=== PATIENT | male | born 2000 | race Caucasian/White ===

== ENCOUNTER 2023-09-10 05:16 | Emergency (ER) | payer BC, SELFPAY ==
[2023-09-10 05:18] VITALS: BP 141/87; PULSE 114; RESP 20; TEMP 35.9; O2SAT 97
[2023-09-10 05:36] LABS: Appearance Urine Clear (Clear); Bilirubin Urine Negative (Negative); Blood Urine Negative (Negative); Color Urine Yellow (Yellow); Glucose Urine UA Negative (Negative); Ketones Urine Negative (Negative); Leukocyte Esterase Ur Negative LEU/UL (Negative); Nitrate Urine Negative (Negative); Protein Urine Negative (Negative); Specific Grav Ur 1.013 (1.001-1.035); Urobilinogen Urine 0.2 mg/dL (<2.0)
--- NOTE | 2023-09-10 05:36 | ED.GENADULT ---
HPI - General Adult General Chief complaint: Nausea/Vomiting/Diarrhea <Hardy Falcon MD - Last Filed: 09/10/23 07:00> Stated complaint: n/vx 8 days <Hardy Falcon MD - Last Filed: 09/10/23 07:00> Time Seen by Provider: 09/10/23 05:32 <Hardy Falcon MD - Last Filed: 09/10/23 07:00> History of Present Illness HPI narrative: This is a 22-year-old male presenting with nausea/vomiting for the last week. vomiting has been getting steadily worse. No fever chills chest pain difficulty breathing or abdominal pain. Patient is a daily marijuana user was not used for several days. patient states he has heard of cannabinoid hyperemesis. Patient is skeptical that marijuana is causing his symptoms. <Hardy Falcon MD - Last Filed: 09/10/23 07:00> Related Data Allergies/adverse reactions: Allergies Allergy/AdvReac Type Severity Reaction Status Date / Time No Known Allergies Allergy Verified 09/10/23 05:21 <Hardy Falcon MD - Last Filed: 09/10/23 07:00> Review of Systems Review of Systems: All systems reviewed & are unremarkable except as noted in HPI and below <Ryan Fowler MD - Last Filed: 09/10/23 17:41> Course Reevaluation(s) Reevaluation #1: Patient care was signed out to me by the overnight physician with disposition pending resolution of the patient's nausea and vomiting. Patient does feel improved the latest round of Benadryl and Compazine. Patient did tolerate p.o.. Patient's potassium was repleted with oral potassium and patient even kept this down. <Ryan Fowler MD - Last Filed: 09/10/23 17:41> Vital Signs Vital signs: Vital Signs Temperature 96.7 F L 09/10/23 05:18 Pulse Rate 114 H 09/10/23 05:18 Respiratory Rate 20 09/10/23 05:18 Blood Pressure 141/87 H 09/10/23 05:18 Pulse Oximetry 97 09/10/23 05:18 Oxygen Delivery Room Air 09/10/23 05:18 Temperature 97.9 F 09/10/23 08:03 Pulse Rate 99 09/10/23 08:03 Respiratory Rate 18 09/10/23 08:03 Blood Pressure 132/80 09/10/23 08:03 Pulse Oximetry 100 09/10/23 08:03 Oxygen Delivery Room Air 09/10/23 05:18 <Hardy Falcon MD - Last Filed: 09/10/23 07:00> Vital Signs Temperature 96.7 F L 09/10/23 05:18 Pulse Rate 114 H 09/10/23 05:18 Respiratory Rate 20 09/10/23 05:18 Blood Pressure 141/87 H 09/10/23 05:18 Pulse Oximetry 97 09/10/23 05:18 Oxygen Delivery Room Air 09/10/23 05:18 Temperature 97.9 F 09/10/23 08:03 Pulse Rate 99 09/10/23 08:03 Respiratory Rate 18 09/10/23 08:03 Blood Pressure 132/80 09/10/23 08:03 Pulse Oximetry 100 09/10/23 08:03 Oxygen Delivery Room Air 09/10/23 05:18 <Ryan Fowler MD - Last Filed: 09/10/23 17:41> Medical Decision Making MDM Narrative Medical decision making narrative: -Course: 22-year-old male presenting with cyclic vomiting. Given antiemetics. Signed out to the oncoming physician pending response to treatment. -DDX includes but is not limited to: Cyclic vomiting, viral syndrome -Co-morbidities complicating care: daily marijuana user, anxiety -Social determinants of health: works in [employer] -Independent interpretation of studies: -Interventions: 2 L normal saline, 5 mg IM Haldol, 4 mg Zofran, 20 mg Pepcid, 10mg compazine 25mg benadryl -Shared decision making / Disposition: signed out Pending response to treatment -RX: Zofran <Hardy Falcon MD - Last Filed: 09/10/23 07:00> Vital Signs Vital Signs: Vital Signs Temperature 96.7 F L 09/10/23 05:18 Pulse Rate 114 H 09/10/23 05:18 Respiratory Rate 20 09/10/23 05:18 Blood Pressure 141/87 H 09/10/23 05:18 Pulse Oximetry 97 09/10/23 05:18 Oxygen Delivery Room Air 09/10/23 05:18 Temperature 97.9 F 09/10/23 08:03 Pulse Rate 99 09/10/23 08:03 Respiratory Rate 18 09/10/23 08:03 Blood Pressure 132/80 09/10/23 08:03 Pulse Oximetry 100 09/10/23 08:03 Oxygen Delivery Room A
[2023-09-10 05:37] LABS: Basophils Absolute Auto 0.1 K/mm3 (0.0-0.1); Basophils Percent Auto 0.9 % (0.2-1.2); Eosinophils Absolute Auto 0.3 K/mm3 (0-0.3); Eosinophils Percent Auto 3.2 % (0-4.4); Hematocrit 44.6 % (42.0-52.0); Immature Granulocyte Absolute 0.01 K/mm3 (0.00-0.031); Immature Granulocyte Percent A 0.1 % (0-0.5); Lymphocytes Absolute Auto 2.64 K/mm3 (0.9-3.2); Lymphocytes Percent Auto 30.4 % (18.3-44.2); Mean Corpuscular HGB Conc 35.9 g/dl (32-36); Mean Corpuscular Hemoglobin 29.3 pg (26-34); Mean Corpuscular Volume 81.5 fl (80-100); Mean Platelet Volume 9.3 fl (7.4-10.4); Monocytes Percent Auto 11.3 % (2.6-8.5); Neutrophils Absolute Auto 4.7 K/mm3 (1.3-6.7); Neutrophils Percent Auto 54.1 % (45.5-73.1); Platelet Count Result 250 k/mm3 (150-375); Red Blood Count 5.47 M/mm3 (4.6-6.20); Red Cell Distribution Width 11.7 % (11.5-14.5); White Blood Count 8.7 K/mm3 (4.5-10.0)
[2023-09-10] MEDS: FAMOTIDINE 20 MG/2 ML VIAL IV PUSH (05:41)
[2023-09-10] MEDS: ONDANSETRON INJ 4 MG/2 ML VIAL IV PUSH (05:45)
[2023-09-10] MEDS: SODIUM CHLORIDE 0.9% IV 2,000 ML 999 ML IV CONT (05:47)
[2023-09-10] MEDS: HALOPERIDOL LACTATE 5 MG/ML VIAL IM (05:47)
[2023-09-10 05:56] LABS: Alanine Aminotransferase 24 U/L (6-50); Albumin Level 4.9 g/dL (3.5-5.1); Alkaline Phosphatase 84 U/L (38-126); Anion Gap 12 mmol/L (8-16); Aspartate Amino Transferase 30 U/L (17-59); Blood Urea Nitrogen 6 mg/dL (9-20); Calcium 9.4 mg/dL (8.4-10.2); Carbon Dioxide 23 mmol/L (22-30); Chloride 104 mmol/L (98-107); Estimated CRCL calculation 141 ml/min; Estimated Glomerular Filt Rate > 60; Glucose 111 mg/dL (65-110); Lipase 36 U/L (23-300); Sodium 139 mmol/L (137-145)
[2023-09-10 05:57] LABS: Add Urine Microscopic? NO
[2023-09-10 06:56] VITALS: BP 112/98; PULSE 108; RESP 20; O2SAT 97
[2023-09-10] MEDS: diphenhydrAMINE HCl INJ 50 MG/ML VIAL 25 MG IV PUSH (06:56)
[2023-09-10] MEDS: PROCHLORPERAZINE EDISYLATE 10 MG/2 ML VIAL IV PUSH (06:57)
[2023-09-10 07:16] VITALS: BP 127/72; PULSE 106; RESP 20; TEMP 36.6; O2SAT 98
[2023-09-10] MEDS: POTASSIUM CHLORIDE 20 MEQ PACKET (FOR LIQUID) 40 MEQ PO (07:41)
[2023-09-10 08:03] VITALS: BP 132/80; PULSE 99; RESP 18; TEMP 36.6; O2SAT 100
== END 2023-09-10 08:05 | disposition home or self-care (01) ==
PROVIDERS: Emergency Provider Emergency Medicine
DX: R11.15 Cyclical vomiting syndrome unrelated to migraine (principal); F12.90 Cannabis use, unspecified, uncomplicated
CPT/HCPCS: 36415; 80053; 81003; 83690; 85025; 96361; 96372; 96374; 96375; 99284; A9270; J0780; J1200; J1630; J2405; J7030